=== PATIENT | female | born 1940 | race Caucasian/White ===

== ENCOUNTER → 2021-04-05 14:37 | Outpatient (CLI) | payer MEDICARE, SELFPAY ==
--- NOTE | 2021-04-05 14:44 | XR_ITS ---
PROCEDURE INFORMATION: Exam: XR Entire Spine, 6 or More Views, Scoliosis Exam date and time: 04/05/2021 2:44 PM Age: 81 years old Clinical indication: Pain; Lumbago; Additional info: Thoracic and lumbar back pain TECHNIQUE: Imaging protocol: XR of the entire spine. 6 or more views. Evaluation for scoliosis. COMPARISON: CR CXR CHEST(2 VIEWS-NOT PORTABLE) 07/11/2014 12:12 PM FINDINGS: Vertebrae: Levoscoliosis of the thoracolumbar junction. Degenerative changes in the thoracolumbar spine. Compression fractures of unknown age in the thoracolumbar junction.. Intervertebral disc space narrowing in the lumbar spine consistent with degenerative disc disease.. Increased lordosis in the lumbar spine Soft tissues: Normal. IMPRESSION: 1. Compression fractures of unknown age in the thoracolumbar junction.. 2. Intervertebral disc space narrowing in the lumbar spine consistent with degenerative disc disease..
== END ==
PROVIDERS: PCP Internal Medicine; Visit Provider Internal Medicine
DX: M54.6 Pain in thoracic spine (principal); M54.50 Low back pain, unspecified
CPT/HCPCS: 72084

== ENCOUNTER → 2021-04-19 10:58 | Outpatient (CLI) | payer MEDICARE, SELFPAY ==
--- NOTE | 2021-04-19 11:01 | XR_ITS ---
PROCEDURE: XR DEXA AXIAL SKELETON CLINICAL HISTORY: POST MENOPAUSAL COMPARISON: No exams were available for comparison FINDINGS: The right hip BMD is 0.759 g per cm squared with a T-score of -1.5. The left hip BMD is 0.693 grams/centimeter squared with a T-score of -2.0. The lumbar spine BMD is 1.074 g per cm squared with a T-score of 0.2. There is moderate levo scoliotic curvature of the lumbar spine with multilevel degenerate changes which could skew the accuracy of the T-score. IMPRESSION: Osteopenia values for both hips, normal T-score lumbar spine see discussion above Based on these results a follow-up exam is recommended in 2 year. Dictated by: Dr. Vignesh Alvarado MD 04/23/2021 13:31 Dr. Vignesh Alvarado MD in [place] 04/23/2021 13:31
== END ==
PROVIDERS: PCP Internal Medicine; Visit Provider Internal Medicine
DX: Z13.820 Encounter for screening for osteoporosis (principal); Z78.0 Asymptomatic menopausal state
CPT/HCPCS: 77080

== ENCOUNTER → 2021-09-20 12:53 | Outpatient (CLI) | payer MEDICARE, SELFPAY ==
[2021-09-20 14:04] LABS: Basophils % 0.4 % (0.1-2.0); Eosinophils % 0.4 % (0.1-12.0); Hematocrit 42.6 % (37.0-47.0); Hemoglobin 13.5 g/dL (12.2-16.2); Lymphocytes # 1.6 K/mm3 (0.7-4.5); Lymphocytes % 20.2 % (10-50); Mean Corpuscular HGB Conc 31.8 g/dL (31.8-35.4); Mean Corpuscular Hemoglobin 30.8 pg (27.0-31.2); Mean Corpuscular Volume 97.1 fl (81-99); Mean Platelet Volume 8.6 fl (7.4-10.4); Monocytes # 0.6 K/mm3 (0.1-1.0); Monocytes % 7.2 % (1.7-9.3); Neutrophils # 5.5 K/mm3 (1.8-7.8); Neutrophils % 71.8 % (37.0-80.0); Platelet Count 445 K/mm3 (142-424); Red Blood Count 4.39 M/mm3 (4.20-5.40); Red Cell Distribution Width 13.2 % (11.5-17.5); White Blood Count 7.7 K/mm3 (4.8-10.8)
[2021-09-20 14:40] LABS: Erythrocyte Sedimentation Rate 23 mm/hr (0-30)
[2021-09-20 16:28] LABS: Alanine Aminotransferase 17 U/L (12-78); Albumin Level 4.1 g/dl (3.5-5.0); Albumin/Globulin Ratio 1.5 (1.1-1.8); Alkaline Phosphatase 71 U/L (38-126); Anion Gap 11.6 mEq/L (5-15); Aspartate Amino Transferase 34 U/L (14-36); Bilirubin,Total 0.6 mg/dl (0.2-1.3); Blood Urea Nitrogen 22 mg/dl (7-17); Calcium 9.1 mg/dl (8.4-10.2); Carbon Dioxide 28 mmol/L (22.0-30.0); Chloride 105 mmol/L (98-107); Chol/HDL Ratio 3.1 (1-3.5); Cholesterol 199 mg/dl (140-200); Estimated Glomerular Filt Rate 80 ml/min (>60); GFR (African American) 97 ML/MIN (>60); Globulin 2.8 g/dL (1.3-3.2); Glucose 89 mg/dl (74-100); HDL Cholesterol 65 mg/dl (40-60); Potassium 4.6 mmoL/L (3.5-5.1); Sodium 140 mmol/L (136-145); Total Protein,Serum 6.9 g/dl (6.3-8.2); Triglycerides 85 mg/dl (30-150); VLDL Cholesterol 17 mg/dL (0-40)
[2021-09-20 16:39] LABS: Direct LDL Cholesterol 91.63 mg/dL (100-129)
[2021-09-20 17:13] LABS: Thyroid Stimulating Hormone 2.63 uIU/mL (0.465-4.68)
[2021-09-20 17:56] LABS: 25-OH Vitamin D, Total 28.5 ng/mL (30-100)
[2021-09-22 12:19] LABS: RA Latex Turbid. <10.0 IU/mL (<14.0)
== END ==
PROVIDERS: Visit Provider Internal Medicine
DX: M54.6 Pain in thoracic spine (principal); M25.50 Pain in unspecified joint; M47.815 Spondylosis without myelopathy or radiculopathy, thoracolumbar region; M41.9 Scoliosis, unspecified; E78.5 Hyperlipidemia, unspecified; E55.9 Vitamin D deficiency, unspecified; M81.0 Age-related osteoporosis without current pathological fracture
CPT/HCPCS: 80053; 80061; 82306; 84443; 85025; 85651; 86431

== ENCOUNTER 2021-10-27 10:47 | Outpatient (CLI) | payer MEDICARE, SELFPAY ==
[2021-10-27 11:00] VITALS: BP 154/79; PULSE 82; RESP 16; O2SAT 98
== END 2021-10-27 11:20 | disposition home or self-care (01) ==
LOC: INF 10:47
PROVIDERS: PCP Internal Medicine; Visit Provider Internal Medicine
DX: M81.0 Age-related osteoporosis without current pathological fracture (principal)
CPT/HCPCS: 96372; J0897

== ENCOUNTER → 2022-02-16 16:56 | Outpatient (CLI) | payer MEDICARE, SELFPAY ==
[2022-02-16 18:00] LABS: Basophils # 0.1 K/mm3 (0-0.2); Basophils % 0.7 % (0.1-2.0); Eosinophils % 0.3 % (0.1-12.0); Hematocrit 45.3 % (37.0-47.0); Hemoglobin 13.9 g/dL (12.2-16.2); Lymphocytes # 1.7 K/mm3 (0.7-4.5); Lymphocytes % 20.8 % (10-50); Mean Corpuscular HGB Conc 30.7 g/dL (31.8-35.4); Mean Corpuscular Hemoglobin 30.2 pg (27.0-31.2); Mean Corpuscular Volume 98.5 fl (81-99); Mean Platelet Volume 8.5 fl (7.4-10.4); Monocytes # 0.5 K/mm3 (0.1-1.0); Monocytes % 6.6 % (1.7-9.3); Neutrophils # 5.8 K/mm3 (1.8-7.8); Neutrophils % 71.5 % (37.0-80.0); Platelet Count 493 K/mm3 (142-424); Red Blood Count 4.59 M/mm3 (4.20-5.40); Red Cell Distribution Width 13.4 % (11.5-17.5); White Blood Count 8.1 K/mm3 (4.8-10.8)
[2022-02-16 18:53] LABS: Vitamin B12 620 pg/mL (239-931)
[2022-02-16 20:04] LABS: 25-OH Vitamin D, Total 46.4 ng/mL (30-100)
== END ==
PROVIDERS: PCP Internal Medicine; Visit Provider Internal Medicine
DX: R53.83 Other fatigue (principal); M47.817 Spondylosis without myelopathy or radiculopathy, lumbosacral region; M81.0 Age-related osteoporosis without current pathological fracture; E55.9 Vitamin D deficiency, unspecified
CPT/HCPCS: 82306; 82607; 85025

== ENCOUNTER → 2023-01-30 14:23 | Outpatient (CLI) | payer MEDICARE, SELFPAY ==
--- NOTE | 2023-01-30 14:29 | XR_ITS ---
FINAL REPORT CLINICAL HISTORY: RT HIP PAIN FINDINGS: Right hip Three views were obtained. There is no acute fracture or dislocation. There are mild degenerative changes. No soft tissue abnormality is identified. IMPRESSION: No acute process. Reviewed, Interpreted and Dictated by Laurent Tavera III, MD Transcribed by Susana Nagel Authenticated and [facility]
--- NOTE | 2023-01-30 14:29 | XR_ITS ---
FINAL REPORT CLINICAL HISTORY: ZORAN SHOULDER PAIN FINDINGS: Left shoulder Three views were obtained. There is no acute fracture or dislocation. There are mild AC and glenohumeral joint degenerative changes. No soft tissue abnormality is identified. IMPRESSION: Degenerative changes as above. Reviewed, Interpreted and Dictated by Laurent Tavera III, MD Transcribed by Susana Nagel Authenticated and . [facility]
--- NOTE | 2023-01-30 14:29 | XR_ITS ---
FINAL REPORT CLINICAL HISTORY: ZORAN SHOULDER PAIN FINDINGS: Right shoulder Four views were obtained. There is no acute fracture or dislocation. There is mild AC joint degenerative change. There is moderate glenohumeral degenerative change. No soft tissue abnormality is identified. IMPRESSION: Degenerative changes as above. Reviewed, Interpreted and Dictated by Laurent Tavera III, MD Transcribed by Susana Nagel Authenticated and [facility]
[2023-01-30 16:53] LABS: Basophils % 0.4 % (0.1-2.0); Eosinophils # 0.1 K/mm3 (0.0-0.4); Eosinophils % 0.9 % (0.1-12.0); Hematocrit 43.6 % (37.0-47.0); Lymphocytes # 1.4 K/mm3 (0.7-4.5); Lymphocytes % 16.7 % (10-50); Mean Corpuscular HGB Conc 32.1 g/dL (31.8-35.4); Mean Corpuscular Hemoglobin 30.7 pg (27.0-31.2); Mean Corpuscular Volume 95.7 fl (81-99); Mean Platelet Volume 8.6 fl (7.4-10.4); Monocytes # 0.6 K/mm3 (0.1-1.0); Monocytes % 6.5 % (1.7-9.3); Neutrophils # 6.5 K/mm3 (1.8-7.8); Neutrophils % 75.5 % (37.0-80.0); Platelet Count 422 K/mm3 (142-424); Red Blood Count 4.55 M/mm3 (4.20-5.40); Red Cell Distribution Width 12.9 % (11.5-17.5); White Blood Count 8.5 K/mm3 (4.8-10.8)
[2023-01-30 17:16] LABS: Erythrocyte Sedimentation Rate 18 mm/hr (0-30)
[2023-01-30 17:18] LABS: Alanine Aminotransferase 19 U/L (12-78); Albumin Level 4.1 g/dl (3.5-5.0); Albumin/Globulin Ratio 1.3 (1.1-1.8); Alkaline Phosphatase 70 U/L (38-126); Anion Gap 10.9 mEq/L (5-15); Aspartate Amino Transferase 34 U/L (14-36); Bilirubin,Total 0.4 mg/dl (0.2-1.3); Blood Urea Nitrogen 24 mg/dl (7-17); Calcium 10.4 mg/dl (8.4-10.2); Carbon Dioxide 33 mmol/L (22.0-30.0); Chloride 104 mmol/L (98-107); Estimated Glomerular Filt Rate 80 ml/min (>60); GFR (African American) 97 ML/MIN (>60); Globulin 3.1 g/dL (1.3-3.2); Glucose 124 mg/dl (74-100); Potassium 4.9 mmoL/L (3.5-5.1); Sodium 143 mmol/L (136-145); Total Protein,Serum 7.2 g/dl (6.3-8.2)
[2023-01-30 17:56] LABS: 25-OH Vitamin D, Total 51.9 ng/mL (30-100)
[2023-01-30 19:59] LABS: Thyroid Stimulating Hormone 0.96 uIU/mL (0.465-4.68)
== END ==
PROVIDERS: PCP Internal Medicine; Visit Provider Internal Medicine
DX: M25.551 Pain in right hip (principal); M25.511 Pain in right shoulder; M25.512 Pain in left shoulder; M81.0 Age-related osteoporosis without current pathological fracture; M54.6 Pain in thoracic spine; M47.815 Spondylosis without myelopathy or radiculopathy, thoracolumbar region; E55.9 Vitamin D deficiency, unspecified; Z79.899 Other long term (current) drug therapy
CPT/HCPCS: 73030; 73502; 80053; 82306; 84443; 85025; 85651

== ENCOUNTER → 2023-02-13 09:18 | Outpatient (CLI) | payer MEDICARE, SELFPAY ==
--- NOTE | 2023-02-13 09:21 | XR_ITS ---
FINAL REPORT TECHNIQUE: Bone densitometry calculations of the lumbar spine and left hip were obtained. CLINICAL HISTORY: SCREENING prior 2020 FINDINGS: Using L1-4, the bone mineral density of the spine is 1.193 g/cm2, corresponding to T-score of 1.3. Using the left hip, the bone mineral density of the femoral neck is 0.792 g/cm2, corresponding to a T-score of -1.2. Using the right hip, the bone mineral density of the femoral neck is 0.784 g/cm2, corresponding to a T-score of -1.3. NOTE: T-score: Standard deviation compared with peak bone mass of young adult mean. *Following the recommendations of the International Society of Bone densitometry, classification of hip BMD is based on the lower of two T-scores; total hip or femoral neck. IMPRESSION: Diminished bone mineral density of the hips consistent with osteopenia. Bone mineral density of the lumbar spine is likely artificially elevated due to hypertrophic change. Reviewed, Interpreted and Dictated by Akil Andrea MD Transcribed by Alla Hoover Authenticated and [facility]
== END ==
PROVIDERS: PCP Internal Medicine; Visit Provider Internal Medicine
DX: Z13.820 Encounter for screening for osteoporosis (principal); Z78.0 Asymptomatic menopausal state
CPT/HCPCS: 77080